=== PATIENT | female | born 2000 | race Caucasian/White ===

== ENCOUNTER 2024-11-29 10:57 | Observation (INO) | payer OTHER, SELFPAY ==
[2024-11-29 11:14] VITALS: BP 124/79; PULSE 67
[2024-11-29 11:15] VITALS: TEMP 36.6
[2024-11-29 11:38] LABS: Glucose Urine UA NEGATIVE (NEGATIVE)
--- NOTE | 2024-11-29 11:53 | US_ITS ---
[place] [id number] Patient Name: SHONDA QURESHI MRN: [id number] date: 2000 Sex: F Assigned Patient Location: [facility] Current Patient Location: Accession/Order Number: [id number] Exam Date: 11/29/2024 13:07 Report Date: 11/29/2024 13:16 At the request of: DAYNA HADDAD DO Procedure: US OB cervical length Cervical length ultrasound. Reason for exam: Rule out rupture of membranes. COMPARISON: None. FINDINGS: Transvaginal imaging of the cervix was obtained. The cervical length measures 5.1 cm no evidence of funneling. heart rate 175 bpm. US/US OB cervical length IMPRESSION: Normal cervical length. Impression dictated by: Turner Elizondo Jr., D.O. 11/29/2024 1:16 PM Dictation Location: [employer] Electronically authenticated by: [id number] Y Date: 11/29/2024 13:16
== END 2024-11-29 12:25 | disposition home or self-care (01) ==
PROVIDERS: Admitting Provider Obstetrics & Gynecology; Visit Provider Obstetrics & Gynecology
DX: Z03.71 Encounter for suspected problem with amniotic cavity and membrane ruled out (principal)
CPT/HCPCS: 76817; 81003; 84112; G0378; G0379